=== PATIENT | female | born 1960 | race Caucasian/White ===

== ENCOUNTER 2023-09-27 10:43 | Emergency (ER) | payer SELFPAY ==
[2023-09-27 10:50] VITALS: BP 151/88; PULSE 75; RESP 18; TEMP 36.1; O2SAT 96
--- NOTE | 2023-09-27 11:00 | DI.RAD_ITS ---
Exam(s) XR KNEE RT 3V AP,LAT,NIKKI EXAM: XR KNEE RT 3V AP,LAT,NIKKI CLINICAL HISTORY: knee pain after jumping off boat 1 month ago. TECHNIQUE: 2D digital imaging was performed. Three views. COMPARISON: No exams were available for comparison FINDINGS: BONES: No acute fracture is present. No bony destructive lesion is seen. JOINTS: The knee is normally aligned. No joint effusion is seen. Joint spaces are maintained. Mini mal degenerative changes. SOFT TISSUE: Normal. IMPRESSION: No acute abnormality. DATA REPOSITORY: RADIATION DOSE DELIVERED:
--- NOTE | 2023-09-27 11:01 | ED.GENADUL_ITS ---
Discharge Plan Disposition Patient Disposition: Home Condition: Improving Discharge Details Clinical Impression: Knee pain, Back pain Primary Care Provider: Diane,Local ED Provider: Jeff Robertson Home Meds and New Rx's Prescriptions: New cyclobenzaprine 5 mg tablet 5 mg PO QHS PRN (Reason: muscle spasm) Qty: 10 0RF lidocaine [Lidoderm] 5 % adhesive patch,medicated 1 patch topical DAILY Qty: 15 0RF Rx Instructions: leave on most painful area for up to 12 hrs No Action modafinil 200 mg tablet 200 mg PO ONCE Patient Comments: TAKE 2 TABLETS BY MOUTH IN THE MORNING lisinopril-hydrochlorothiazide 20-12.5 mg tablet 2 tab PO DAILY Patient Comments: TAKE 2 TABLETS BY MOUTH ONCE DAILY amlodipine 10 mg tablet 10 mg PO DAILY Patient Comments: TAKE 1 TABLET BY MOUTH ONCE DAILY bupropion HCl 300 mg tablet extended release 24 hr 300 mg PO DAILY Patient Comments: TAKE 1 TABLET BY MOUTH ONCE DAILY esomeprazole magnesium 40 mg capsule,delayed release(DR/EC) 40 mg PO DAILY Patient Comments: TAKE 1 CAPSULE BY MOUTH ONCE DAILY fluoxetine 40 mg capsule 40 mg PO DAILY Patient Comments: TAKE 1 CAPSULE BY MOUTH ONCE DAILY IN THE MORNING metoprolol tartrate 50 mg tablet 50 mg PO DAILY Patient Comments: TAKE 1 TABLET BY MOUTH TWICE DAILY WITH MEALS multivitamin [Daily Multi-Vitamin] Tablet 1 tab PO DAILY Discharge Instructions Instructions: Low back pain in adults, Knee Pain ED HPI General Date/Time Provider Initiated Documentation: 09/27/23 10:53 . HPI Narrative: 62-year-old female presents with 1 month of right knee pain after jumping off of a family member's boat, able to walk and range knee however does have discomfort pressure-like in nature, no locking crepitus or falls; also experiencing acute on chronic lower back discomfort radiating to left buttock. No bowel or bladder issues. Related Data Home Medications ?Medication ?Instructions ?Recorded ?Confirmed amlodipine 10 mg tablet 10 mg PO DAILY 09/27/23 09/27/23 bupropion HCl 300 mg 24 hr tablet, 300 mg PO DAILY 09/27/23 09/27/23 extended release cyclobenzaprine 5 mg tablet 5 mg PO QHS PRN muscle spasm #10 09/27/23 tabs esomeprazole magnesium 40 mg 40 mg PO DAILY 09/27/23 09/27/23 capsule,delayed release fluoxetine 40 mg capsule 40 mg PO DAILY 09/27/23 09/27/23 lidocaine 5 % topical patch 1 patch topical DAILY #15 ea 09/27/23 (Lidoderm) lisinopril 20 2 tab PO DAILY 09/27/23 09/27/23 mg-hydrochlorothiazide 12.5 mg tablet metoprolol tartrate 50 mg tablet 50 mg PO DAILY 09/27/23 09/27/23 modafinil 200 mg tablet 200 mg PO ONCE 09/27/23 09/27/23 multivitamin (Daily Multi-Vitamin 1 tab PO DAILY 09/27/23 09/27/23 tablet) Previous Rx's ?Medication ?Instructions ?Recorded cyclobenzaprine 5 mg tablet 5 mg PO QHS PRN muscle spasm #10 09/27/23 tabs lidocaine 5 % topical patch 1 patch topical DAILY #15 ea 09/27/23 (Lidoderm) Allergies Allergy/AdvReac Type Severity Reaction Status Date / Time No Known Allergies Allergy Unverified 09/27/23 10:52 General Stated Complaint: Nk/Back Pain JOE: 4 Exam Narrative Exam Narrative: Alert oriented no acute distress Speaking full sentences no respiratory distress Moving all extremities without deficit, sensation and limb is intact warm well- perfused No midline spinal tenderness step-off crepitus or deformity some left lumbar paraspinal muscle spasm Right lower extremity: No effusion no laxity no crepitus full range of motion sensation intact Course Vital Signs Vital signs: Vital Signs Temperature 36.1 C L 09/27/23 10:50 Pulse 75 09/27/23 10:50 Respiratory Rate 18 09/27/23 10:50 Blood Pressure 151/88 H 09/27/23 10:50 Pulse Oximetry 96 09/27/23 10:50 Temperature 36.1 C L 09/27/23 10:50 Temperature Source Temporal Artery Scan 09/27/23 10:50 Pulse 75 09/27/23 10:50 Respiratory Rate 18 09/27/23 10:50 Blood Pressure 151/88 H 09/27/23 10:50 Pulse Oximetry 96 09/27/23 10:50 Oxygen Delivery Method Room Air 09/27/23 10:50 Oxygen Flow Rate 0 09/27/23 10:50 Medical Decision Making 62-year-old female presents with acute on chronic left lower back discomfort, as well as 1 month of right knee pain. No external signs of trauma neurovascular exam of limb intact no midline spinal tenderness, ambulatory without assistance, some evidence of muscle spasm left lumbar region, no joint effusion of knee warm well-perfused limb. Consider contusion versus meniscal injury versus muscular strain versus ligamentous sprain no evidence of spinal fracture or cauda equina. Will obtain screening x-ray analgesia anti-inflammatory likely home with follow-up 13: 39 patient resting comfortably feeling better after medication. Quality:SDOH Health Related Social Needs: No Data to Display PFSH All Active Problems (Updated 09/27/23 @ 13:39 by Jeff Robertson MD) Back pain (Acute) Knee pain (Acute) Social History Smoking/Tobacco Use Status: Never Smoking risk assessment performed?: Yes Alcohol Intake: never Drug use: Daily Substance use type: marijuana
[2023-09-27] MEDS: Cyclobenzaprine 10 MG TAB PO (11:11)
[2023-09-27] MEDS: Lidocaine 5% Patch 1 PATCH TP (11:11)
[2023-09-27] MEDS: Dexamethasone 10 MG/ML VIAL PO (11:11)
[2023-09-27 13:10] VITALS: BP 145/74; PULSE 74
== END 2023-09-27 13:53 | disposition home or self-care (01) ==
PROVIDERS: Emergency Provider Emergency Medicine
DX: M25.561 Pain in right knee (principal); M54.50 Low back pain, unspecified; X50.0XXA Overexertion from strenuous movement or load, initial encounter
CPT/HCPCS: 73562; 99283; J1100